=== PATIENT | male | born 1960 | race African-American/Black ===

== ENCOUNTER 2016-05-14 06:08 | Emergency (ER) | payer SELFPAY ==
[2016-05-14 06:39] VITALS: TEMP 97.8; BMI 23.0
[2016-05-14] MEDS ORDERED: IBUPROFEN 600 MG TAB PO STA (06:47)
[2016-05-14] MEDS ORDERED: CYCLOBENZAPRINE 10 MG TAB PO STA (06:47)
--- NOTE | 2016-05-14 06:49 | EDPRACDOC ---
- General Information Chief Complaint: Abdominal Pain Stated Complaint: RT ABD PAIN Time Seen by Provider: 05/14/16 06:46 Information Source: Patient Mode Of Arrival: Car Home Medications: Home Medications Cyclobenzaprine HCl [Flexeril] 5 mg PO Q8H PRN #20 tablet 05/14/16 Ibuprofen Tablet [Motrin] 600 mg PO Q6H #30 tab 05/14/16 Oxycodone HCl [Roxicodone] 5 mg PO Q4-6H PRN #15 tablet 05/14/16 Allergies/Adverse Reactions: Allergies Allergy/AdvReac Type Severity Reaction Status Date / Time No Known Allergies Allergy Verified 05/14/16 06:39 - History of Present Illness Onset: 1 week HPI: PT PRESENTS WITH RLQ ABDOMINAL PAIN AFTER CARRYING A VERY LARGE OBJECT A FEW DAYS AGO. PAIN WITH ENGAGEMENT OF ABDOMINAL MUSCULATURE. NO N/V/D, LOSS OF APPETITE, OR FEVER. Pain Location: Reports: RLQ Pain Context: Reports: With Exertion Pain Severity: Moderate Pain Quality: Reports: Aching, Sharp Pain Radiation: Reports: No Radiation Associated Signs & Symptoms: Denies: Nausea, Vomiting, Diarrhea, Dysuria, Fever Oral Intake: Normal Urinary Output: Normal ED Past Medical History - History Reviewed Yes Nurses notes reviewed and agree except as marked - Patient Medical History Psychological History: Reports: Substance Use Disorder (Alcohol). Denies: Depression Additional Past Medical History: PROSTATITIS Surgical History: Reports: Appendectomy - Family Medical History Reports: Cardiac Disorders - Social Medical History Smoking Status: Former smoker Social History: Reports: Substance Use Disorder (Alcohol) Lives In: Home EDM Review of Systems - Review of Systems ROS Negative Except as Marked: Yes All systems reviewed and were negative except as marked Respiratory: negative: Shortness of Breath Cardiovascular: negative: Chest Pain Gastrointestinal: Pain. negative: Constipation, Diarrhea, Nausea, Vomiting Genitourinary: negative: Dysuria - Physical Exam Constitutional: Alert Oriented to: Time, Person, Place Last recorded Vital Signs: Last Vital Signs Temp 97.8 F 05/14/16 06:15 Pulse 71 05/14/16 06:15 Resp 20 05/14/16 06:15 BP 120/67 05/14/16 06:15 Pulse Ox 99 05/14/16 06:15 Oxygen Pulse Oxygen Saturation 99 O2 Device Room Air Oxygen Flow Rate Fraction of Inspired Oxygen ( FIO2) - HEENT Head: negative: Deformity, Laceration Eye Exam: negative: Conjunctival Injection, Pale Conjunctiva Oropharynx: negative: Membranes Dry Nose: negative: Congestion, Discharge Neck: negative: Limited ROM - Respiratory/Cardiovascular Respiratory: Normal - CTA. negative: Accessory Muscle Use, Diminished, Tachypnea Cardiovascular: negative: Bradycardia, Tachycardia, Irregular - GI Auscultation: Normal Palpation: Normal Tenderness: Moderate, RLQ (AND LATERAL ABDOMINAL WALL MUSCULATURE). negative: Rebound, Rigidity - Integumentary Skin: Warm, Dry. negative: Rash - Neurologic Memory Impaired: Normal Motor Function: Normal Mood Description: Anxious, Appropriate Thought: Coherent Perception: Normal Decision Time to Discharge: 06:49 - Departure Yes I personally saw and evaluated the patient. Disposition: Home Condition: Stable Final Diagnosis: Abdominal wall strain Qualifiers: Encounter type: initial encounter Qualified Code(s): S39.011A - Strain of muscle, fascia and tendon of abdomen, initial encounter Instructions: Abdominal Exercises (GEN), Muscle Strain (ED) Education/Counseling Given To: Patient Education/Counseling Given Regarding: Diagnosis, Treatment, Prognosis, Follow Up Referrals: None,No Provider [Primary Care Provider] - One Week Prescriptions: Cyclobenzaprine HCl [Flexeril] 5 mg PO Q8H PRN #20 tablet PRN Reason: Muscle Spasms Ibuprofen Tablet [Motrin] 600 mg PO Q6H #30 tab Oxycodone HCl [Roxicodone] 5 mg PO Q4-6H PRN #15 tablet PRN Reason: Breakthrough Pain
[2016-05-14 07:08] VITALS: BP 123/66; PULSE 70
== END 2016-05-14 07:07 | disposition home or self-care (01) ==
LOC: ED 06:08
DX: S39.011A Strain of muscle, fascia and tendon of abdomen, initial encounter (principal); X58.XXXA Exposure to other specified factors, initial encounter; Y93.9 Activity, unspecified
CPT/HCPCS: 99283; J3490